=== PATIENT | female | born 1995 | race Caucasian/White ===

== ENCOUNTER 2020-12-09 14:36 | Emergency (ER) | payer MEDICAID ==
--- NOTE | 2020-12-09 15:24 | EDM.PDOC ---
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 Is blood type B+. Bleeding began about 1330h today. Tried to call the clinic, but tired of sitting on hold so just came to the ER. Cramping is mild. Not dizzy with standing. No pHx of miscarriage. Onset: Today, Sudden Onset Date: 12/09/20 Onset Time: 13:30 Duration: Hour(s): (2), Constant Location: Reports: Pelvis Quality: Reports: Other (cramps) Severity: Mild Improves with: Reports: None Worsens with: Reports: Other (unsure) Context: Reports: Other (See HPI) Associated Symptoms: Reports: No Other Symptoms Treatments SUPERVISOR DOPING: Reports: Other (see below) (none) Pelvic Pain Score (Numeric/FACES): 4 - Related Data Allergies Allergy/AdvReac Type Severity Reaction Status Date / Time No Known Allergies Allergy Verified 12/09/20 14:58 Home Meds: Home Meds Pnv No.95/Ferrous Fum/Folic AC [ Caplet] 1 each PO DAILY 12/09/20 [History] 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: Reports: Social & Family History - Tobacco Use Tobacco Use Status *Q: Never Tobacco User - Caffeine Use Caffeine Use: Reports: Tea - Recreational Drug Use Recreational Drug Use: No ED ROS GENERAL - Review of Systems Review Of Systems: See Below Constitutional: Reports: No Symptoms HEENT: Reports: No Symptoms Respiratory: Reports: No Symptoms Cardiovascular: Reports: No Symptoms GI/Abdominal: Reports: No Symptoms : Reports: Pain (uterine cramping), Other (vaginal bleeding) Musculoskeletal: Reports: No Symptoms Skin: Reports: No Symptoms ED EXAM - Physical Exam Exam: See Below Exam Limited By: No Limitations General Appearance: Alert, WD/WN, No Apparent Distress Eye Exam: Bilateral Eye: Normal Inspection Ears: Normal External Exam, Normal Canal, Hearing Grossly Normal Nose: Normal Inspection, No Blood Throat/Mouth: Normal Inspection, Normal Lips, Normal Oropharynx, Normal Voice, No Airway Compromise Head: Atraumatic, Normocephalic Neck: Normal Inspection Respiratory/Chest: No Respiratory Distress, Lungs Clear, Normal Breath Sounds, No Accessory Muscle Use Cardiovascular: Regular Rate, Rhythm, No Edema GI/Abdominal Exam: Normal Bowel Sounds, Soft, Non-Tender, No Distention Back Exam: Normal Inspection. No: CVA Tenderness (R), CVA Tenderness (L) Extremities: Normal Inspection, Normal Range of Motion, Non-Tender, No Pedal Edema Neurological: Alert, Oriented, CN II-XII Intact, Normal Cognition, No Motor/Sensory Deficits Psychiatric: Normal Affect, Normal Mood Skin Exam: Warm, Dry, Intact, Normal Color, No Rash Course - Vital Signs Last Recorded V/S: Last Vital Signs Temp 36.6 C 12/09/20 14:54 Pulse 98 12/09/20 14:54 Resp 18 12/09/20 14:54 BP 112/67 12/09/20 14:54 Pulse Ox 97 12/09/20 14:54 Orthostatic Blood Pressure [ 111/68 Standing] Orthostatic Blood Pressure [ 100/64 Sitting] Orthostatic Blood Pressure [ 96/51 Supine] - Orders/Labs/Meds Orders: Active Orders 24 hr Category Date Time Status Orthostatic Vital Signs [RC] ASDIRECTED Care 12/09/20 15:11 Active Labs: Laboratory Tests 12/09/20 Range/Units 15:20 HCG, Quant 69995 H (0-6) mIU/mL Departure - Departure Time of Disposition: 16:10 Disposition: Home, Self-Care 01 Condition: Fair Clinical Impression: First trimester bleeding - Discharge Information *PRESCRIPTION DRUG MONITORING PROGRAM REVIEWED*: Not Applicable *COPY OF PRESCRIPTION DRUG MONITORING REPORT IN PATIENT KATHRINE: Not Applicable Referrals: PCP,None [Primary Care Provider] - Forms: ED Department Discharge Additional Instructions: Rest. Acetaminophen up to 1000 mg every 6 hrs as needed for pain relief. Drink ample fluids. See your provider for recheck in a day or two. Return if dizzy with standing. Sepsis Event Note (ED) - Evaluation Sepsis Screening Result: No Definite Risk - Focused Exam Vital Signs: Vital Signs Temp Pulse Resp BP Pulse Ox 12/09/20 14:54 36.6 C 98 18 112/67 97 - My Orders Last 24 Hours: My Active Orders 12/09/20 15:11 Orthostatic Vital Signs [RC] ASDIRECTED - Assessment/Plan Last 24 Hours: My Active Orders 12/09/20 15:11 Orthostatic Vital Signs [RC] ASDIRECTED
== END 2020-12-09 16:15 | disposition home or self-care (01) ==
LOC: JP.ED 14:36
DX: O20.9 Hemorrhage in early pregnancy, unspecified (principal); Z3A.12 12 weeks gestation of pregnancy
CPT/HCPCS: 36415; 84702; 99282; 99284